=== PATIENT | female | born 1955 | race Caucasian/White ===

== ENCOUNTER 2020-07-04 04:54 | Inpatient (IN) | payer BC, OTHER ==
[2020-07-01 12:04] VITALS: BMI 19.8
[2020-07-04] MEDS ORDERED: ONDANSETRON 4 MG/2 ML VIAL IVPUSH PRN (09:49)
[2020-07-04] MEDS ORDERED: oxyCODONE HCL 5 MG TABLET PO PRN (09:49)
[2020-07-04] MEDS ORDERED: DEXAMETHASONE SOD PHOSPHATE/PF 10 MG/ML SDV ONE (10:00)
[2020-07-04] MEDS ORDERED: ROPIVACAINE HCL 0.5% 30ML VIAL ONE (10:00)
[2020-07-04] MEDS ORDERED: MIDAZOLAM HCL 2 MG/2 ML SINGLE DOSE VIAL ONE ×3 (10:20→10:28)
[2020-07-04] MEDS ORDERED: PROPOFOL 20 ML ONE ×2 (10:28→16:28)
[2020-07-04] MEDS ORDERED: ROCURONIUM BROMIDE 100 MG/10 ML VIAL ONE ×2 (10:31→17:42)
[2020-07-04] MEDS ORDERED: PHENYLEPHRINE HCL 10 MG/1 ML SINGLE DOSE VIAL ONE (10:31)
[2020-07-04] MEDS ORDERED: SUCCINYLCHOLINE CHLORIDE 200 MG/10 ML SYRINGE ONE (10:32)
[2020-07-04] MEDS ORDERED: EPHEDRINE SULFATE/0.9% NACL/PF 50 MG/10 ML SYRINGE NR ONE (10:32)
[2020-07-04] MEDS ORDERED: fentaNYL CITRATE 250 MCG/5 ML VIAL ONE (17:32)
[2020-07-04] MEDS ORDERED: ceFAZolin SODIUM 1 GM VIAL IVPB ONE (17:35)
[2020-07-04] MEDS ORDERED: ceFAZolin SODIUM 1 GM VIAL ONE (17:38)
[2020-07-04] MEDS ORDERED: CEFAZOLIN 1 GM in DEXTROSE 5%-WATER - 50 ML IVPB SCH (18:00)
[2020-07-04] MEDS ORDERED: DEXAMETHASONE SOD PHOSPHATE 4 MG/1 ML VIAL ONE (18:08)
[2020-07-04] MEDS: LACTATED RINGERS SOLUTION 1,000 ML IV SCH (21:00)
[2020-07-04] MEDS: oxyCODONE HCL 5 MG TABLET PO PRN (21:10)
[2020-07-04] MEDS ORDERED: oxyCODONE HCL 5 MG TABLET ONE (21:13)
[2020-07-04] MEDS: oxyCODONE HCL 10 MG SUSTAINED ACTING TABLET PO SCH (22:00)
[2020-07-05] MEDS ORDERED: DEXTROSE 5%-WATER - 50 ML IVPB ONE ×2 (00:34→09:05)
[2020-07-05] MEDS ORDERED: ceFAZolin SODIUM 1 GM VIAL ONE ×2 (00:34→09:04)
[2020-07-05] MEDS: oxyCODONE HCL 5 MG TABLET PO PRN ×3 (00:39→08:58)
[2020-07-05] MEDS: CEFAZOLIN 1 GM in DEXTROSE 5%-WATER - 50 ML IVPB SCH ×2 (01:06→09:13)
[2020-07-05] MEDS ORDERED: PT OWN MED DRAWER 7, Y5N ONE (09:05)
[2020-07-05] MEDS: LACTATED RINGERS SOLUTION 1,000 ML IV SCH (09:16)
[2020-07-05] MEDS ORDERED: PNEUMOCOCCAL 23 VACCINE 0.5 ML VIAL IM ONE (10:00)
[2020-07-05] MEDS ORDERED: FLU VACCINE (FLULAVAL) PF 60 MCG/0.5 ML SYRINGE 2020-2021 IM ONE (10:00)
[2020-07-05] MEDS: oxyCODONE HCL 10 MG SUSTAINED ACTING TABLET PO SCH ×2 (11:19→11:23)
[2020-07-05 11:49] VITALS: BP 148/85; PULSE 89; TEMP 97.9
[2020-07-05] MEDS ORDERED: PNEUMOC 13-VAL CONJ-DIP CRM/PF 0.5 ML DISP.SYRIN IM ONE (12:13)
[2020-07-05] MEDS ORDERED: ROSUVASTATIN CA 10 MG TABLET (FP) PO SCH (22:00)
== END 2020-07-05 12:42 | disposition home or self-care (01) | DRG 483 ==
LOC: J2C 04:54 → J6S 21:46
PROVIDERS: ADMIT Orthopaedic Surgery; ATTEND Orthopaedic Surgery
PROC: 0RRJ00Z Replacement of Right Shoulder Joint with Reverse Ball and Socket Synthetic Substitute, Open Approach (ICD-10-PCS; principal; 2020-07-04 10:30)
DX: M19.011 Primary osteoarthritis, right shoulder (principal); M87.811 Other osteonecrosis, right shoulder; M75.01 Adhesive capsulitis of right shoulder; E78.5 Hyperlipidemia, unspecified; I10 Essential (primary) hypertension; F41.9 Anxiety disorder, unspecified; J44.9 Chronic obstructive pulmonary disease, unspecified
CPT/HCPCS: 73030-TC-RT-FY; 88305-TC; 88311-TC; 90732; 94760; 97116-GP; 97161-GP; G0008; G0009; Q2036

== ENCOUNTER 2020-11-08 04:51 | Day surgery (SDC) | payer BC, OTHER ==
[2020-11-08 09:47] VITALS: BMI 18.7
[2020-11-08] MEDS ORDERED: LIDOCAINE HCL 2% JELLY 10 ML CARTRIDGE TP ONE (10:40)
[2020-11-08] MEDS ORDERED: LIDOCAINE HCL 2% JELLY 10 ML CARTRIDGE ONE (10:40)
[2020-11-08 10:55] VITALS: TEMP 98.2
[2020-11-08 12:24] VITALS: BP 170/88; PULSE 76
== END 2020-11-08 12:18 | disposition home or self-care (01) ==
LOC: JASU-ENDO 04:51
PROVIDERS: ATTEND Internal Medicine Gastroenterology
PROC: 0DBE8ZX Excision of Large Intestine, Via Natural or Artificial Opening Endoscopic, Diagnostic (ICD-10-PCS; 2020-11-08)
PROC: 06LY4CC Occlusion of Hemorrhoidal Plexus with Extraluminal Device, Percutaneous Endoscopic Approach (ICD-10-PCS; 2020-11-08)
PROC: 0DBE8ZX Excision of Large Intestine, Via Natural or Artificial Opening Endoscopic, Diagnostic (ICD-10-PCS; principal; 2020-11-08 10:15)
DX: Z12.11 Encounter for screening for malignant neoplasm of colon (principal); D12.2 Benign neoplasm of ascending colon; D12.3 Benign neoplasm of transverse colon; D12.4 Benign neoplasm of descending colon; K64.8 Other hemorrhoids; K63.5 Polyp of colon; R63.4 Abnormal weight loss; Z88.1 Allergy status to other antibiotic agents; Z86.010 Personal history of colon polyps
CPT/HCPCS: 88305-TC

== ENCOUNTER 2021-10-12 22:44 | Inpatient (IN) | payer BC, OTHER ==
[2021-10-12 22:55] VITALS: BMI 20.6
[2021-10-12] MEDS ORDERED: SODIUM CHLORIDE 1,000 ML IV SCH (23:45)
[2021-10-13 00:40] LABS: BASO % 0.6 % (0-2.0); EOS % 1.1 % (0-4.5); HEMATOCRIT 34.5 % (32.4-45.2); HEMOGLOBIN 12.1 GM/dL (10.7-15.3); LYMPH % 27.3 % (8-40); MCH 33.9 pg (25.7-33.7); MCHC 35.1 g/dl (32.0-36.0); MEAN CELL VOLUME 96.6 fl (80-96); MEAN PLT VOLUME 7.2 fl (7.5-11.1); MONO % 6.2 % (3.8-10.2); NEUT % 64.8 % (42.8-82.8); PLATELET COUNT 289 10^3/uL (134-434); RBC 3.57 M/mm3 (3.60-5.2); RDW 14.2 % (11.6-15.6); WHITE BLOOD COUNT 8.9 K/mm3 (4.0-10.0)
[2021-10-13 00:57] LABS: INR 0.97 (0.83-1.09); PROTHROMBIN TIME (PATIENT) 11.2 SEC (9.7-13.0)
[2021-10-13 01:00] LABS: ACTIVATED PTT 27.6 SECONDS (25.2-36.5)
[2021-10-13 01:01] LABS: CALCIUM 8.4 mg/dL (8.5-10.1)
[2021-10-13 01:02] LABS: ALBUMIN 3.6 g/dl (3.4-5.0)
[2021-10-13 01:03] LABS: BLOOD UREA NITROGEN 25.3 mg/dL (7-18)
[2021-10-13 01:05] LABS: CREATININE 1.5 mg/dL (0.55-1.3)
[2021-10-13 01:07] LABS: TOT PROT 6.9 g/dl (6.4-8.2)
[2021-10-13 01:08] LABS: BILIRUBIN,TOTAL 0.9 mg/dL (0.2-1)
[2021-10-13] MEDS ORDERED: ASPIRIN 81 MG CHEWABLE TABLETS PO ONE (01:32)
[2021-10-13] MEDS ORDERED: ASPIRIN 81 MG CHEWABLE TABLETS ONE (02:07)
[2021-10-13 07:11] LABS: EPI CELLS >36 /uL (0-25.1); HYALINE CASTS 1 /uL (0-3.1); PH,URINE 5.5 (5.0-8.0); URINE APPEARANCE CLEAR; URINE BACTERIA 15 /uL (0-1359); URINE BILIRUBIN NEGATIVE (NEGATIVE); URINE COLOR YELLOW; URINE GLUCOSE (UA) NEGATIVE (NEGATIVE); URINE KETONE NEGATIVE (NEGATIVE); URINE LEUK ESTERASE 1+ (NEGATIVE); URINE NITRITE NEGATIVE (NEGATIVE); URINE PROTEIN NEGATIVE (NEGATIVE); URINE RBC 11 /uL (0-23.9); URINE UROBILINOGEN 0.2 mg/dL (0.2-1.0); URINE WBC 100 /uL (0-25.8)
[2021-10-13 08:06] LABS: BASO % 0.6 % (0-2.0); EOS % 1.1 % (0-4.5); HEMATOCRIT 32.1 % (32.4-45.2); HEMOGLOBIN 11.1 GM/dL (10.7-15.3); LYMPH % 27.9 % (8-40); MCH 33.5 pg (25.7-33.7); MCHC 34.5 g/dl (32.0-36.0); MEAN CELL VOLUME 97.2 fl (80-96); MEAN PLT VOLUME 7.6 fl (7.5-11.1); MONO % 6.1 % (3.8-10.2); NEUT % 64.3 % (42.8-82.8); PLATELET COUNT 271 10^3/uL (134-434); RBC 3.31 M/mm3 (3.60-5.2); RDW 14.1 % (11.6-15.6); WHITE BLOOD COUNT 8.5 K/mm3 (4.0-10.0)
[2021-10-13 08:21] LABS: ALBUMIN 3.2 g/dl (3.4-5.0); BLOOD UREA NITROGEN 24.6 mg/dL (7-18); MAGNESIUM 1.7 mg/dL (1.8-2.4)
[2021-10-13 08:24] LABS: CREATININE 1.3 mg/dL (0.55-1.3); PHOSPHOROUS 3.6 mg/dL (2.5-4.9)
[2021-10-13 08:26] LABS: BILIRUBIN,TOTAL 0.5 mg/dL (0.2-1); TOT PROT 6.1 g/dl (6.4-8.2)
[2021-10-13] MEDS: ASPIRIN COATED 81 MG TABLET.EC PO SCH (10:45)
[2021-10-13] MEDS ORDERED: ASPIRIN COATED 81 MG TABLET.EC ONE (10:46)
[2021-10-13] MEDS ORDERED: ALBUTEROL SO4 2.5/IPRATROPIUM 0.5 INH SOL 3 ML VIAL.NEB. NEB PRN (17:48)
[2021-10-13] MEDS: NYSTATIN 500,000 UNITS/5 ML SUSPENSION PO SCH ×2 (18:17→23:23)
[2021-10-13] MEDS: ATORVASTATIN CA 40 MG TABLET (FP) PO SCH (21:17)
[2021-10-13] MEDS: HEPARIN NA (PORCINE) 5,000 UNITS/ML 1ML VIAL SQ SCH (21:17)
[2021-10-14] MEDS: ACETAMINOPHEN 325 MG TABLET (FP) PO PRN ×2 (05:28→17:16)
[2021-10-14] MEDS: NYSTATIN 500,000 UNITS/5 ML SUSPENSION PO SCH ×3 (06:22→17:16)
[2021-10-14] MEDS: HEPARIN NA (PORCINE) 5,000 UNITS/ML 1ML VIAL SQ SCH ×2 (09:34→21:28)
[2021-10-14] MEDS: ASPIRIN COATED 81 MG TABLET.EC PO SCH (09:34)
[2021-10-14] MEDS ORDERED: MELATONIN 5 MG TABLETS PO PRN (10:28)
[2021-10-14 12:54] LABS: BASO % 0.5 % (0-2.0); EOS % 0.8 % (0-4.5); HEMATOCRIT 34.1 % (32.4-45.2); LYMPH % 35.5 % (8-40); MCH 34.2 pg (25.7-33.7); MCHC 35.3 g/dl (32.0-36.0); MEAN PLT VOLUME 7.5 fl (7.5-11.1); MONO % 4.7 % (3.8-10.2); NEUT % 58.5 % (42.8-82.8); PLATELET COUNT 294 10^3/uL (134-434); RBC 3.51 M/mm3 (3.60-5.2); RDW 14.3 % (11.6-15.6); WHITE BLOOD COUNT 9.3 K/mm3 (4.0-10.0)
[2021-10-14 13:17] LABS: CALCIUM 8.8 mg/dL (8.5-10.1)
[2021-10-14 13:18] LABS: ALBUMIN 3.6 g/dl (3.4-5.0); BLOOD UREA NITROGEN 24.8 mg/dL (7-18); MAGNESIUM 1.9 mg/dL (1.8-2.4)
[2021-10-14 13:21] LABS: CREATININE 1.3 mg/dL (0.55-1.3)
[2021-10-14 13:22] LABS: BILIRUBIN,TOTAL 0.4 mg/dL (0.2-1)
[2021-10-14] MEDS: ATORVASTATIN CA 40 MG TABLET (FP) PO SCH (21:28)
[2021-10-15] MEDS: NYSTATIN 500,000 UNITS/5 ML SUSPENSION PO SCH ×3 (01:03→12:05)
[2021-10-15] MEDS: ACETAMINOPHEN 325 MG TABLET (FP) PO PRN ×2 (05:34→12:05)
[2021-10-15 07:25] LABS: BASO % 0.4 % (0-2.0); EOS % 1.3 % (0-4.5); HEMOGLOBIN 11.5 GM/dL (10.7-15.3); LYMPH % 33.8 % (8-40); MCH 34.3 pg (25.7-33.7); MEAN PLT VOLUME 7.6 fl (7.5-11.1); MONO % 5.5 % (3.8-10.2); PLATELET COUNT 253 10^3/uL (134-434); RBC 3.36 M/mm3 (3.60-5.2)
[2021-10-15 07:47] LABS: CALCIUM 8.7 mg/dL (8.5-10.1)
[2021-10-15 07:48] LABS: ALBUMIN 3.3 g/dl (3.4-5.0); BLOOD UREA NITROGEN 29.7 mg/dL (7-18); MAGNESIUM 1.6 mg/dL (1.8-2.4)
[2021-10-15 07:51] LABS: CREATININE 1.4 mg/dL (0.55-1.3)
[2021-10-15 07:52] LABS: BILIRUBIN,TOTAL 0.5 mg/dL (0.2-1); TOT PROT 6.4 g/dl (6.4-8.2)
[2021-10-15 07:59] VITALS: BP 150/90; PULSE 108; TEMP 98.8
[2021-10-15] MEDS: ASPIRIN COATED 81 MG TABLET.EC PO SCH (09:23)
[2021-10-15] MEDS: HEPARIN NA (PORCINE) 5,000 UNITS/ML 1ML VIAL SQ SCH (09:23)
== END 2021-10-15 14:38 | disposition home or self-care (01) | DRG 65 ==
LOC: JER 22:44 → JERBED 23:52 → OBSVTOIN 10-13 02:13 → J4W 10-13 16:53
PROVIDERS: ADMIT Hospitalist; ATTEND Nurse Practitioner Family
DX: I63.9 Cerebral infarction, unspecified (principal); I69.354 Hemiplegia and hemiparesis following cerebral infarction affecting left non-dominant side; R29.701 NIHSS score 1; M21.332 Wrist drop, left wrist; E78.5 Hyperlipidemia, unspecified; R29.6 Repeated falls; I12.9 Hypertensive chronic kidney disease with stage 1 through stage 4 chronic kidney disease, or unspecified chronic kidney disease; N18.9 Chronic kidney disease, unspecified; J44.9 Chronic obstructive pulmonary disease, unspecified; Z85.21 Personal history of malignant neoplasm of larynx
CPT/HCPCS: 36415; 80053; 80061; 81003; 82436; 82550; 82570; 82962; 83036; 83735; 84100; 84133; 84156; 84300; 84436; 84439; 84443; 84481; 84484; 85025; 85610; 85730; 86850; 86900; 86901; 93005; 93010; 93306-TC; 93880-TC; 97116-GP; 97162-GP; 99285-25; C9803; G0378; J1644; U0003; U0005

== ENCOUNTER 2021-11-02 17:23 | Observation (INO) | payer BC ==
[2021-11-02 21:52] LABS: BASO % 0.3 % (0-2.0); EOS % 0.5 % (0-4.5); HEMATOCRIT 35.7 % (32.4-45.2); HEMOGLOBIN 12.3 GM/dL (10.7-15.3); LYMPH % 23.2 % (8-40); MCH 33.4 pg (25.7-33.7); MCHC 34.5 g/dl (32.0-36.0); MEAN CELL VOLUME 96.7 fl (80-96); MEAN PLT VOLUME 7.7 fl (7.5-11.1); MONO % 6.4 % (3.8-10.2); NEUT % 69.6 % (42.8-82.8); PLATELET COUNT 368 10^3/uL (134-434); RBC 3.69 M/mm3 (3.60-5.2); RDW 13.7 % (11.6-15.6); WHITE BLOOD COUNT 9.1 K/mm3 (4.0-10.0)
[2021-11-02 21:59] LABS: INR 1.08 (0.83-1.09); PROTHROMBIN TIME (PATIENT) 12.4 SEC (9.7-13.0)
[2021-11-02 22:02] LABS: ACTIVATED PTT 32.8 SECONDS (25.2-36.5)
[2021-11-02 22:15] LABS: CALCIUM 9.6 mg/dL (8.5-10.1)
[2021-11-02 22:16] LABS: ALBUMIN 4.1 g/dl (3.4-5.0); BLOOD UREA NITROGEN 20.7 mg/dL (7-18)
[2021-11-02 22:19] LABS: CREATININE 1.4 mg/dL (0.55-1.3)
[2021-11-02 22:20] LABS: BILIRUBIN,TOTAL 0.4 mg/dL (0.2-1); TOT PROT 7.3 g/dl (6.4-8.2)
[2021-11-03] MEDS ORDERED: ALPRAZolam 1 MG TABLET PO PRN (03:30)
[2021-11-03 04:51] LABS: MAGNESIUM 1.8 mg/dL (1.8-2.4)
[2021-11-03 04:55] LABS: PHOSPHOROUS 3.5 mg/dL (2.5-4.9)
[2021-11-03 06:20] LABS: BASO % 0.5 % (0-2.0); EOS % 1.1 % (0-4.5); HEMATOCRIT 33.8 % (32.4-45.2); HEMOGLOBIN 11.4 GM/dL (10.7-15.3); LYMPH % 29.2 % (8-40); MCH 32.9 pg (25.7-33.7); MCHC 33.7 g/dl (32.0-36.0); MEAN CELL VOLUME 97.6 fl (80-96); MEAN PLT VOLUME 7.7 fl (7.5-11.1); NEUT % 62.2 % (42.8-82.8); PLATELET COUNT 317 10^3/uL (134-434); RBC 3.46 M/mm3 (3.60-5.2); RDW 13.3 % (11.6-15.6)
[2021-11-03 06:21] LABS: CALCIUM 8.5 mg/dL (8.5-10.1)
[2021-11-03 06:22] LABS: BLOOD UREA NITROGEN 20.5 mg/dL (7-18)
[2021-11-03 06:25] LABS: CREATININE 1.3 mg/dL (0.55-1.3)
[2021-11-03 07:02] VITALS: BMI 18.7
[2021-11-03] MEDS ORDERED: POTASSIUM CHLORIDE TABS 20 MEQ TABLET.ER (FP) PO ONE (07:36)
[2021-11-03 08:50] VITALS: BP 152/86; PULSE 100; TEMP 99.4
[2021-11-03] MEDS ORDERED: ASPIRIN COATED 81 MG TABLET.EC ONE (08:55)
[2021-11-03] MEDS ORDERED: ASPIRIN COATED 81 MG TABLET.EC PO SCH (10:00)
[2021-11-03] MEDS ORDERED: PANTOPRAZOLE 40 MG TABLET PO SCH (10:00)
[2021-11-03] MEDS ORDERED: metoPROLOL SUCCINATE 25 MG TAB.SR.24H (FP) PO SCH (10:00)
[2021-11-03] MEDS ORDERED: TEMAZEPAM 15 MG CAPSULE PO SCH (22:00)
[2021-11-03] MEDS ORDERED: ATORVASTATIN CA 40 MG TABLET (FP) PO SCH (22:00)
== END 2021-11-03 12:57 | disposition home or self-care (01) ==
LOC: JER 17:23 → JERBED 23:45 → J4S 11-03 06:37
PROVIDERS: ADMIT Internal Medicine; ATTEND Nurse Practitioner Acute Care
DX: I13.10 Hypertensive heart and chronic kidney disease without heart failure, with stage 1 through stage 4 chronic kidney disease, or unspecified chronic kidney disease (principal); N18.9 Chronic kidney disease, unspecified; E78.5 Hyperlipidemia, unspecified; I69.354 Hemiplegia and hemiparesis following cerebral infarction affecting left non-dominant side; Z88.8 Allergy status to other drugs, medicaments and biological substances; C80.1 Malignant (primary) neoplasm, unspecified; C79.89 Secondary malignant neoplasm of other specified sites; R25.1 Tremor, unspecified; R50.9 Fever, unspecified; R07.89 Other chest pain; R55 Syncope and collapse; R10.9 Unspecified abdominal pain; F17.210 Nicotine dependence, cigarettes, uncomplicated
CPT/HCPCS: 36415; 71045-TC-FY; 80048; 80053; 82962; 83735; 84100; 84484; 85025; 85610; 85730; 93005; 93010; 97116-GP; 97161-GP; 99285-25; C9803-CS; G0378; U0003; U0005

== ENCOUNTER 2022-11-16 12:34 | Inpatient (IN) | payer OTHER, BC ==
[2022-11-16] MEDS ORDERED: morphine CARPU-JECT 2 MG/1 ML DISP.SYRIN IVPUSH ONE (13:35)
[2022-11-16] MEDS ORDERED: PIPERACILLIN/TAZOB 3.375 GM 3.375 GM in DEXTROSE 5%-WATER - 50 ML IVPB ONE (14:21)
[2022-11-16] MEDS ORDERED: VANCOMYCIN 1 GM in D5W (PRE-DOCKED) 1,000 MG/250 ML IVPB ONE (14:21)
[2022-11-16] MEDS ORDERED: VANCOMYCIN/WATER FOR INJ (PEG) 1,000 MG/200 ML BAG IVPB ONE (14:27)
[2022-11-16] MEDS ORDERED: PIPERACILLIN/TAZOB 3.375 GM 3.375 GM/50 ML BAG IVPB ONE (14:27)
[2022-11-16] MEDS ORDERED: ACETAMINOPHEN 1000 MG/100 ML BAG IVPB ONE (14:58)
[2022-11-16] MEDS ORDERED: ACETAMINOPHEN INJECTION 100 ML IVPB ONE (15:05)
[2022-11-16 15:25] LABS: BASO % 0.4 % (0-2.0); EOS % 0.2 % (0-4.5); HEMATOCRIT 35.3 % (32.4-45.2); HEMOGLOBIN 12.3 GM/dL (10.7-15.3); MCH 30.3 pg (25.7-33.7); MCHC 34.8 g/dl (32.0-36.0); MEAN CELL VOLUME 86.9 fl (80-96); MEAN PLT VOLUME 8.2 fl (7.5-11.1); MONO % 5.7 % (3.8-10.2); NEUT % 79.7 % (42.8-82.8); PLATELET COUNT 262 10^3/uL (134-434); RBC 4.06 M/mm3 (3.60-5.2); RDW 14.4 % (11.6-15.6); WHITE BLOOD COUNT 10.8 K/mm3 (4.0-10.0)
[2022-11-16 15:29] LABS: EPI CELLS 28 /uL (0-25.1); HYALINE CASTS 2 /uL (0-3.1); URINE APPEARANCE CLEAR; URINE BACTERIA 13 /uL (0-1359); URINE BILIRUBIN NEGATIVE (NEGATIVE); URINE COLOR YELLOW; URINE GLUCOSE (UA) NEGATIVE (NEGATIVE); URINE KETONE NEGATIVE (NEGATIVE); URINE LEUK ESTERASE TRACE (NEGATIVE); URINE NITRITE NEGATIVE (NEGATIVE); URINE PROTEIN NEGATIVE (NEGATIVE); URINE RBC 47 /uL (0-23.9); URINE UROBILINOGEN 0.2 mg/dL (0.2-1.0); URINE WBC 28 /uL (0-25.8)
[2022-11-16 15:36] LABS: INR 1.19 (0.83-1.09); PROTHROMBIN TIME (PATIENT) 13.8 SEC (9.7-13.0)
[2022-11-16 15:39] LABS: ACTIVATED PTT 34.8 SECONDS (25.2-36.5)
[2022-11-16 15:50] LABS: CALCIUM 9.3 mg/dL (8.5-10.1)
[2022-11-16 15:51] LABS: ALBUMIN 3.6 g/dl (3.4-5.0); BLOOD UREA NITROGEN 19.9 mg/dL (7-18)
[2022-11-16 15:54] LABS: CREATININE 1.2 mg/dL (0.55-1.3)
[2022-11-16 15:55] LABS: BILIRUBIN,TOTAL 0.4 mg/dL (0.2-1); TOT PROT 7.5 g/dl (6.4-8.2)
[2022-11-16] MEDS ORDERED: SODIUM CHLORIDE 1,000 ML IV STA (18:09)
[2022-11-16] MEDS ORDERED: ACETAMINOPHEN 1000 MG/100 ML BAG IVPB PRN (22:28)
[2022-11-16] MEDS ORDERED: ALBUTEROL SO4 HFA INHALER IH PRN (22:30)
[2022-11-17] MEDS ORDERED: PIPERACILLIN/TAZOB 3.375 GM 3.375 GM in DEXTROSE 5%-WATER - 50 ML IVPB SCH ×2 (02:00→18:00)
[2022-11-17] MEDS: PIPERACILLIN/TAZOB 3.375 GM 3.375 GM in DEXTROSE 5%-WATER - 50 ML IVPB SCH ×2 (02:40→09:06)
[2022-11-17] MEDS: NYSTATIN 500,000 UNITS/5 ML SUSPENSION PO SCH ×4 (02:40→17:30)
[2022-11-17 04:11] VITALS: BMI 17.2
[2022-11-17 07:19] VITALS: RESP 18
[2022-11-17 09:02] LABS: BASO % 0.8 % (0-2.0); EOS % 1.4 % (0-4.5); HEMATOCRIT 30.3 % (32.4-45.2); HEMOGLOBIN 10.6 GM/dL (10.7-15.3); LYMPH % 18.7 % (8-40); MCH 30.3 pg (25.7-33.7); MCHC 34.9 g/dl (32.0-36.0); MEAN CELL VOLUME 86.7 fl (80-96); MEAN PLT VOLUME 7.9 fl (7.5-11.1); MONO % 7.2 % (3.8-10.2); NEUT % 71.9 % (42.8-82.8); PLATELET COUNT 217 10^3/uL (134-434); RBC 3.49 M/mm3 (3.60-5.2); RDW 14.5 % (11.6-15.6); WHITE BLOOD COUNT 10.9 K/mm3 (4.0-10.0)
[2022-11-17 09:05] LABS: INR 1.19 (0.83-1.09); PROTHROMBIN TIME (PATIENT) 13.8 SEC (9.7-13.0)
[2022-11-17 09:08] LABS: ACTIVATED PTT 34.3 SECONDS (25.2-36.5)
[2022-11-17 09:32] LABS: BLOOD UREA NITROGEN 18.4 mg/dL (7-18); CALCIUM 8.7 mg/dL (8.5-10.1); MAGNESIUM 1.5 mg/dL (1.8-2.4)
[2022-11-17 09:35] LABS: PHOSPHOROUS 2.9 mg/dL (2.5-4.9)
[2022-11-17 09:36] LABS: CREATININE 1.1 mg/dL (0.55-1.3)
[2022-11-17 09:37] LABS: BILIRUBIN,TOTAL 0.6 mg/dL (0.2-1); TOT PROT 6.5 g/dl (6.4-8.2)
[2022-11-17] MEDS ORDERED: MAGNESIUM SULF 50% (8.12 MEQ/2 ML-1 GM VIAL) IVPB ONE (09:37)
[2022-11-17] MEDS: ENOXAPARIN NA (PORCINE) 40 MG/0.4 ML DISP.SYRIN SQ SCH ×2 (10:25→10:31)
[2022-11-17] MEDS ORDERED: VANCOMYCIN/WATER FOR INJ (PEG) 1,000 MG/200 ML BAG IVPB SCH (12:00)
[2022-11-17] MEDS ORDERED: VANCOMYCIN 750 MG PREMIX BAG (RESTRICTED TO ID ONLY) IVPB SCH (15:00)
[2022-11-17] MEDS ORDERED: VANCOMYCIN 750 MG PREMIX BAG (RESTRICTED TO ID ONLY) IVPB ONE (15:00)
[2022-11-17] MEDS ORDERED: VANCOMYCIN/WATER FOR INJ (PEG) 750 MG/150 ML BAG IVPB SCH (15:00)
[2022-11-17 18:42] VITALS: TEMP 98.6
[2022-11-17 21:14] VITALS: BP 117/84; PULSE 84
[2022-11-17] MEDS ORDERED: ATORVASTATIN CA 40 MG TABLET (FP) PO SCH (22:00)
[2022-11-17] MEDS ORDERED: MIRTAZAPINE 15 MG TABLET (FP) PO SCH (22:00)
== END 2022-11-17 21:10 | disposition short-term general hospital (02) | DRG 844 ==
LOC: JER 12:34 → JERBED 21:10 → J7W 11-17 03:26
PROVIDERS: ADMIT Internal Medicine; ATTEND Internal Medicine
DX: D49.89 Neoplasm of unspecified behavior of other specified sites (principal); B37.0 Candidal stomatitis; I69.354 Hemiplegia and hemiparesis following cerebral infarction affecting left non-dominant side; L02.11 Cutaneous abscess of neck; L03.221 Cellulitis of neck; R22.1 Localized swelling, mass and lump, neck; C14.0 Malignant neoplasm of pharynx, unspecified; C76.0 Malignant neoplasm of head, face and neck; D32.9 Benign neoplasm of meninges, unspecified; E78.5 Hyperlipidemia, unspecified; I10 Essential (primary) hypertension; J44.9 Chronic obstructive pulmonary disease, unspecified; M54.2 Cervicalgia; R29.6 Repeated falls; I25.10 Atherosclerotic heart disease of native coronary artery without angina pectoris
CPT/HCPCS: 36415; 70543-TC; 71045-TC-FY; 80053; 81003; 83735; 84100; 85025; 85610; 85730; 86850; 86900; 86901; 87040; 87070; 87086; 87186; 87205; 93005; 93010; 99285-25; A9579; C9803-CS; U0003; U0005